=== PATIENT | female | born 1950 | race Caucasian/White ===

== ENCOUNTER → 2023-05-22 15:07 | Outpatient (CLI) | payer OTHER, SELFPAY ==
[2023-05-22 17:13] LABS: Add Manual Diff / Slide Review NO; Basophils Absolute Auto 0 /uL (0-100); Basophils Percent Auto 0.6 % (0-2); Eosinophils Absolute Auto 100 /uL (0-450); Hemoglobin 13.6 g/dL (12.0-16.0); Lymphocytes Absolute Auto 2300 /uL (1100-4500); Mean Corpuscular HGB Conc 33.9 % (30-36); Mean Corpuscular Hemoglobin 30.3 PG (26-34); Mean Corpuscular Volume 89.5 fL (80-100); Monocytes Absolute Auto 400 /uL (0-900); Monocytes Percent Auto 6.7 % (3-14); Neutrophils Absolute Auto 3700 /uL (1500-7000); Neutrophils Percent Auto 55.7 % (50-75); Platelet Count 226 X10^3/uL (150-400); Red Blood Cell Count 4.47 X10^6/uL (4.0-5.2); Red Cell Distribution Width 13.4 % (11.6-14.8); White Blood Cell Count 6.6 X10^3/uL (4.5-11.0)
[2023-05-22 17:26] LABS: Hemoglobin A1C% w Est Avg Glu 5.5 % (4.0-6.0)
[2023-05-22 17:27] LABS: BUN Creatinine Ratio 29.5 (6-22); Blood Urea Nitrogen 23 mg/dL (7-17); Calcium 9.6 mg/dL (8.4-10.2); Carbon Dioxide 31 mmol/L (22-32); Chloride 104 mmol/L (98-107); Estimated Glomerular Filt Rate > 60 mL/min (>60); Glucose 94 mg/dL (80-110); HEMOLYSIS < 15 (0-50); Potassium 4.2 mmol/L (3.4-5.1); Sodium 140 mmol/L (137-145)
== END ==
PROVIDERS: PCP Physician Assistant; Referring Provider Orthopaedic Surgery Orthopaedic Surgery of the Spine; Visit Provider Orthopaedic Surgery Orthopaedic Surgery of the Spine
DX: Z01.818 Encounter for other preprocedural examination (principal); R73.9 Hyperglycemia, unspecified; Z01.812 Encounter for preprocedural laboratory examination
CPT/HCPCS: 36415; 80048; 83036; 85025; 93005

== ENCOUNTER 2023-06-22 06:43 | Inpatient (IN) | payer OTHER, SELFPAY ==
[2023-06-14 12:57] VITALS: BMI 32.5
[2023-06-22] VITALS (13 sets, daily range): BP systolic 87–150; BP diastolic 45–83; PULSE 71–92; RESP 10–17; TEMP 35.8–36.2; O2SAT 84–97; BMI 33.6
--- NOTE | 2023-06-22 | DI.RAD.S_ITS ---
PROCEDURE: XR LUMBAR SPINE 2-3V INDICATIONS: L4-5 L5-S1 TLIF TECHNIQUE: 3 views of the lumbar spine were acquired. COMPARISON: [facility] Outside Film, MR, MR LUMBAR SPINE WITHOUT CONTRAST, 02/06/2022, 15:13. [facility] Outside Film, CT, CT LUMBAR SPINE WITHOUT CONTRAST, 05/03/2023, 11:23. FINDINGS: 3 intraoperative fluoroscopy images demonstrate discectomy and posterior fusion at L4-L5 and L5-S1. IMPRESSION: Discectomy and posterior fusion at L4-S1. Dictated by: Tod Bethea M.D. on 06/22/2023 at 13:12 Approved by: Tod Bethea M.D. on 06/22/2023 at 13:13
[2023-06-22] MEDS: ACETAMINOPHEN 325 MG TABLET 975 MG PO (07:39)
[2023-06-22] MEDS: PREGABALIN 75 MG CAPSULE PO (07:39)
[2023-06-22] MEDS: LACTATED RINGERS 1,000 ML 42 ML IV (07:39)
--- NOTE | 2023-06-22 07:39 | PM.PREOP ---
Pre-operative Note Interval Note History & Physical reviewed/Exam performed by Physician: Yes Changes to H&P: No
[2023-06-22] MEDS: CEFAZOLIN 2 GM/100 ML PREMIX 100 ML IV ×3 (08:15→23:03)
--- NOTE | 2023-06-22 08:32 | SUR.OPER ---
Prone on spine table, head in foam head support, padded chest and pelvic supports, gel pad at knees, lower legs supported by pillows; nipples, genitalia and toes free of pressure, arms secured on foam padded arm boards at <90 degrees abduction. Tape over blanket at thigh secured to table.
[2023-06-22] MEDS: BUPIVACAINE LIPOSOME 266 MG/20 ML VIAL INJ (08:40)
[2023-06-22] MEDS: BUPIVACAINE 0.25% (PF) 60 ML, EPINEPHrine 0.15 MG INJ (08:41)
--- NOTE | 2023-06-22 11:11 | P.OP_ITS ---
Operative Date/Time/Diagnoses Date of procedure: 06/22/23 Time of procedure: 07:40 Pre-op diagnosis: 1. L4-5, L5-S1 spinal stenosis with radiculopathy 2. L4-5, L5-S1 spondylolisthesis Post-op diagnosis: same Procedure & Clinicians Procedure: 1. L4-5, L5-S1 Postero-lateral and posterior interbody fusion 2. L4-5, L5-S1 interbody cage placement. 3. L4-5, L5-S1 decompressive laminectomy with bilateral facetecomies 4. L4-5, L5-S1 Posterior segmental instrumentation 5. Byron of bone marrow from iliac crest 6. Utilization of microsurgical technique and operating microscope 7. Utilization of robotic assisted navigation Same procedure as scheduled: Yes Indications: Patient has been having chronic back pain and worsening lumbar radiculopathy. Patient failed multiple conservative management with worsening pain weakness and numbness in her lower extremity. Patient has been having difficulty performing activity of daily living. After discussing risks benefits of treatment options, patient elected proceed with surgery. Surgeon: Stan Dodge Burglar Alarm Assembler: Lynda Bello Click Yes if Unassisted: No Anesthesia Type: General Operative Notes Specimen(s): none sent Prosthetic devices, grafts, tissues, transplants, or devices: Globus CREO MiS screws, Rise cages Applied: catheter Estimated Blood Loss (mL): 100 Blood products transfused: none Procedure in detail: Patient was seen in the preoperative area. Risks and benefits of the surgery was discussed with the patient. Informed consent was obtained from the patient and placed in the chart. Surgical site was marked. Patient was taken to the operative room. General anesthesia was administered. Prophylactic antibiotic was given to the patient less than 30 min before the incision was made. Patient was placed into a prone position on the Trevon table. Patient's back was then p repped and draped in the sterile fashion. Time-out was performed at this time. After patient was prepped and draped, patient's PSIS was palpated and marked bilaterally. Small 1 cm incision was made over the PSIS for placement of the reference probes. Two trocar was placed into the PSIS 1 on each side. The reference probe was attached to the trocar of the reference apparatus. At this time the C-arm imaging was used to confirm AP and lateral of L4-L5, L5- S1 vertebrae and merged the C-arm imaging using the [employer] robotic navigation system with the CT of the lumbar spine. After successful merging was completed and confirmed, skin marker was used to daniel out the skin incision using the [employer] robotic arm. Bilateral incision was made at this time. Pre templated trajectory was used and guided using the [employer] robotic navigation system for bilateral L4, L5, S1 pedicle screw placement. This was done by using the robotic arm to guide the high-speed bur to make a cortical entry point. Next a drill was placed also using the robotic arm and guided using the navigation system drilling partially through bilateral L4, L5 and S1 pedicles. Next L4, L5, S1 pedicle screws it was pre templated and measured was placed onto the power class b truck driver and inserted into the pedicles bilaterally. After all 6 screws were placed C-arm imaging was taken of both AP and lateral to confirm the placement. Excellent placement of the screws were confirmed and a matched precisely with the pre planned screw placement using the navigation system. MARs retractor was inserted using [employer] guidence. Globus MARS retractors was placed inside the incision and docked onto the L4 and L5 lamina. Using microsurgical technique and operating microscope, a L4, L5 laminectomy and L4-5, L5-S1 facetectomy was performed using a Kerrison rongeur. The laminectomy and facetectomy was performed in order to decompress patient's cauda equina as well as the nerve roots exiting at the L4-5, L5-S1 level. Patient was found have severe lateral recess and neural foramen stenosis which was fully decompressed after the laminectomy facetectomy. More than 75% of the facets were removed during the process of decompression rendering L4-5, L5-S1 level grossly unstable and required a fusion procedure at the same time. The disc space at L4-5, L5-S1 was identified, and a total diskectomy was performed at L4-5, L5-S1 level. The endplates were decorticated using a rasp and shaver. The total diskectomy and decortication was performed at L4-5, L5-S1 level in order to to accomplish a L4- 5, L5-S1 fusion. The local bone from the laminectomy and facetectomy was saved for local bone grafting. After the total diskectomy and decortication was completed, Trifecta bone graft material was combined with local bone that was harvested earlier. At this time, a separate skin is incision was made over the iliac crest. A Jamshidi needle was inserted into the iliac crest through a separate skin incision. 5 cc of bone marrow aspiration was obtained through the separate skin incision using a Jamshidi needle from the iliac crest. The bone marrow aspiration was combined with local bone and the DBM bone grafting material. The bone grafting material was placed into the L4-5, L5-S1 interbody space along with a expandable cage. The cage was expanded to its maximum height using the torque limiting screwdriver. The disc preparation as well as the cage insertion were also performed under navigation guidance. After the cage was placed, AP and lateral C-arm imaging was taken to confirm placement of the cage and excellent position was confirmed. Globus MARS retractor was inserted and docked onto the L4-5, L5-S1 posterolateral gutter on the right side. Using the power drill, posterior- lateral decortication was performed at L4-5, L5-S1 level until bleeding cortical bone was identified. The remaining bone grafting material was placed into the L4-5, L5-S1 posterior lateral gutter he order to accomplish posterolateral fusion at the L4-5, L5-S1 level. At this time the tulips were attached to the L4, L5, S1 pedicle screw shanks. After measuring the length of the rods, they were inserted into the tulips of the pedicle screws and locked in place using locking caps and torque limiting screwdriver bilaterally. Total 6 caps and 2 titanium rods was used in order to complete the posterior instrumentation construct. After all the hardware was placed, and confirmed with AP and lateral C-arm imaging, the wound was then irrigated with sterile normal saline and packed with Ray-Kelly gauze for 3 min to accomplish hemostasis. After the gauze was removed the deep fascia was closed with #1 Vicryl suture. The subcutaneous layer was closed with 2-0 Vicryl. The skin was closed with skin amor. Patient tolerated the procedure well. There were no complications. Neuro monitoring system was used to monitor patient's neurologic status throughout entire procedure. There was no disturbance of the neural monitoring signals throughout the case. The Operation could not have been safely performed without compromising the technical result or length of the procedure, without the assistance of a skilled surgical appliances salesperson. The surgical appliances salesperson was medically necessary for proper positioning, retraction and manipulation of instruments, proper exposure, surgical preparation, and manipulation of tissue. Complications: none Post-operative Condition: stable Disposition: PACU Plan for aftercare: Admit to inpatient hospital
[2023-06-22] MEDS: HYDROMORPHONE 2 MG TABLET PO (12:07)
[2023-06-22] MEDS: hydrOXYzine pamoate 25 MG CAPSULE PO ×3 (12:08→23:05)
[2023-06-22] MEDS: HYDROMORPHONE 0.5 MG INJ IV ×2 (12:49→20:17)
[2023-06-22] MEDS: LACTATED RINGERS 1,000 ML 125 ML IV ×2 (12:50→20:08)
[2023-06-22] MEDS: ONDANSETRON 4 MG ODT SL ×2 (12:50→18:25)
[2023-06-22] MEDS: TRAMADOL 50 MG TABLET PO ×2 (14:54→21:42)
--- NOTE | 2023-06-22 15:25 | PT.IPTN ---
Current Diagnoses Spondylolisthesis, lumbar region (06/22/23) Spinal stenosis, lumbar region with neurogenic claudication (06/22/23) Surgery Performed Operation Date: 06/22/23 07:45 Actual Procedures p L4-5, L5-S1 TLIF w. posterior instrumentation -Robot - Stan Dodge MD Physical Therapy Treatment Note M3 PT-IP Subjective Start: 06/22/23 15:59 Freq: NEEDED Status: Active Protocol: Document 06/22/23 15:25 AB (Rec: 06/22/23 16:09 AB [id number]) Subjective Physical Therapy Visit Type Type Administrative Note Notes PT eval received. Checked on pt and pt initially agreed to do PT. PLOF and home set up obtained. BP: 124/67 and O2 sat 96% with 2L/min O2, 90-92% at RA. Post-op handout provided and discussed with pt . educated pt regarding back precautions and log roll bed mobility. spouse arrived. PT set things up for pt prior mele mobilization but when it was time to mobilize, pt stated that she is getting nauseated and wants to just do PT tomorrow. positioned everything back. call light and table placed within reach. spouse stated that he will stay for the night and agreeed to do caregiver training tomorrow ~ 10am.
[2023-06-22] MEDS: ACETAMINOPHEN 325 MG TABLET 650 MG PO ×2 (17:41→23:04)
[2023-06-23] MEDS: TRAMADOL 50 MG TABLET PO ×3 (04:09→11:01)
[2023-06-23] MEDS: hydrOXYzine pamoate 25 MG CAPSULE PO ×3 (04:09→16:02)
[2023-06-23] MEDS: LACTATED RINGERS 1,000 ML 125 ML IV (04:40)
[2023-06-23 04:56] VITALS: BP 118/55; PULSE 104; RESP 18; TEMP 36.4; O2SAT 93
[2023-06-23 05:30] LABS: Hematocrit 33.3 % (36-46)
[2023-06-23] MEDS: ACETAMINOPHEN 325 MG TABLET 650 MG PO ×2 (09:12→20:27)
[2023-06-23] MEDS: CITALOPRAM 10 MG TABLET 5 MG PO (09:12)
[2023-06-23] MEDS: LORATADINE 10 MG TABLET PO (09:12)
[2023-06-23 09:20] VITALS: BP 113/46; PULSE 90; RESP 18; TEMP 36.7; O2SAT 93
--- NOTE | 2023-06-23 10:15 | PT.IIE ---
Current Diagnoses Spondylolisthesis, lumbar region (06/22/23) Spinal stenosis, lumbar region with neurogenic claudication (06/22/23) Arthrodesis status (06/22/23) Surgery Performed Operation Date: 06/22/23 07:45 Actual Procedures p L4-5, L5-S1 TLIF w. posterior instrumentation -Robot - Stan Dodge MD Surgical History (Last Updated 06/14/23 @ 13:24 by Mili Kaur, RN) History of section (~1980) History of cholecystectomy History of hysterectomy History of surgery History of tonsillectomy and adenoidectomy (~1954) Hx of bilateral cataract extraction (~2017) Status post LASIK surgery (~2000) Medical History (Last Updated 06/14/23 @ 13:24 by Mili Kaur, RN) History of anxiety History of arm fracture (~2010) History of back pain History of bruising easily History of chronic urinary tract infection History of depression History of eczema History of fracture (~2007) History of fracture (~2007) History of migraine headaches History of pneumococcal pneumonia History of sepsis (~2010) Lumbosacral spinal stenosis Physical Therapy Inpatient Evaluation/Re-Eval M1 PT/OT-IP Prior Functional Status Start: 06/22/23 15:59 Freq: NEEDED Status: Active Protocol: Document 06/23/23 10:15 AB (Rec: 06/23/23 13:03 [email or web address]) Medical Review Prior Functional Status Medical History Reviewed Yes Communication able to make needs known Mobility and Gait pt stated that she is modified independent with all mobilities and ambulation without AD Social History Household Members spouse Living Arrangements Apartment/Condo Number of Floors (Floors) One Floor Number of Stairs To Enter/Railing? pt lives in the 3rd floor of an apartment with an elevator to get to her level has to walk ~ 100 ft to get in to her apartment Home Environment Standard Height Toilet,Tub/ Shower,Elevator Home Equipment Four Wheel Walker,Shower Seat with Backrest,Hand Held Shower ,Grab Bars Near Toilet,Grab Bars In Shower Additional Social History Comment pt stated that she can borrow a FWW from her neighbor has to walk at least 100 ft to get into her apartment M2 PT-IP Current Condition Start: 06/22/23 15:59 Freq: NEEDED Status: Active Protocol: Document 06/23/23 10:15 AB (Rec: 06/23/23 13:03 AB [email or web address]) Physical Therapy Current Condition Current Condition Evaluation Date 06/23/23 Treatment Diagnosis s/p L4-5,L5S1 TLIF; difficulty in walking Onset Date 06/22/23 M3 PT-IP Subjective Start: 06/22/23 15:59 Freq: NEEDED Status: Active Protocol: Document 06/23/23 10:15 AB (Rec: 06/23/23 13:03 AB [email or web address]) Subjective Physical Therapy Visit Type Type Initial Evaluation Visit Start Time 10:15 Visit Stop Time 10:50 Total Visit Minutes 35 Number of DRYWALL CONTRACTOR Visits 0 Physical Therapy Visit Comments Patient Comments agreeable to do PT; c/o 07/03 pain Therapy Pain Assessment Pain When Pain Assessed At Rest Pain Present Pain Present Pain Reported Location low back Intensity 10 Scale Used Numeric (0 - 10) Pain Management Techniques Distraction,Modification of Treatment,Re-positioning, Timing of Activity with Medications M4 PT-IP Mobility and Gait Start: 06/22/23 15:59 Freq: NEEDED Status: Active Protocol: Document 06/23/23 10:15 AB (Rec: 06/23/23 13:03 AB [email or web address]) PT-Bed Mobility Assessment Rolling Type of Rolling Log Rolling Level of Assist Minimal Assistance Supine to Sit Supine to Sit Moderate Assistance Sit to Supine Sit to Supine Standby Assistance PT-Transfer Assessment Sit to and From Stand Sit to and from Stand Moderate Assistance,Maximum Assistance,1 Person Assistance ,Use of Upper Extremities Equipment Transfer Assistive Device Gait Belt,Front Wheeled Walker Orthotic/Prosthetic Devices or Brace: No Transfers Transfer Destination Bed Transfer Technique ambulated Transfer Ability Level of Assist Moderate Assistance,1 Person Assistance,Use of Upper Extremities Comments Mobility Comments pt supine in bed. able to recall back precautions. c/o 07/03 LBP. completed log roll supine to sit mod A and max cues. able to sit on EOB CGA. completed sit to stand mod to max A and max cues. ambulated ~ 12 ft to the other side of the bed using FWW mod A and max cues for steadiness . Caregiver training initiated. educated spouse on how to use safety belt and how to assist pt. spouse was able to put safety belt on pt. educated pt on sit<>stand techniques. completed sit to stand with PT assisting mod A and cues. pt repeated sit <>stand x 3 with spouse assisting and completed mod A and cues. spouse assisted pt with ambulation in room using FWW 12 ft mod A. pt requested to go back to bed. completed sit to supine SBA . positioned pt in bed. call light and table placed within reach. Gait Assessment Gait Gait Assistance Required: Moderate Assistance Distance (Feet) 12 Able to Maintain Weight Bearing Status Yes During Gait Assistive Devices Assistive Device Gait Belt,Front Wheeled Walker Orthotic/Prosthetic Devices or Brace: No Gait Deviations General Gait Pattern Antalgic,Decreased Stride Length,Decreased Feet Clearance,Step-to Gait Factors Limiting Gait Function Factors Limiting Gait Function Decreased Activity Tolerance, Decreased Strength,Limited Range of Motion,Pain,Poor Balance,Poor Safety Awareness PT-Balance Assessment Sitting Balance and Reactions Static Sitting Balance Ability Good Dynamic Sitting Balance Ability Good Standing Balance and Reactions Static Standing Balance Ability Fair Dynamic Standing Balance Ability Poor Device Used FWW M5 PT-IP Objective Assessments Start: 06/22/23 15:59 Freq: NEEDED Status: Active Protocol: Document 06/23/23 10:15 AB (Rec: 06/23/23 13:03 [email or web address]) Orientation Orientation/Cognition Level of Alertness Alert Orientation Name,Place,Situation Language Function Ability No Deficits Noted Safety Awareness Decreased Safety Awareness Memory Description No Deficits Noted Gross Range of Motion Lower Extremity ROM Assessment Within Functional Limits Strength Lower Extremity Strength Assessment Bilaterally Impaired Hip 4-/5 Knee 3+/5 Sensation Assessment Sensation Gross Sensation Right LE Impaired Sensation Description Numbness Comments Sensation Comments c/o R lower leg numbness Muscle Tone Muscle Tone WNL Yes M6 PT-IP Treatment Start: 06/22/23 15:59 Freq: NEEDED Status: Active Protocol: Document 06/23/23 10:15 AB (Rec: 06/23/23 13:03 AB [email or web address]) Physical Therapy Treatment Education Education Provided Precautions,Weight Bearing Status,Post-Op Packet,Safety M7 PT-IP Assessment and Plan Start: 06/22/23 15:59 Freq: NEEDED Status: Active Protocol: Document 06/23/23 10:15 AB (Rec: 06/23/23 13:03 AB [email or web address]) PT Summary Assessment and Plan Potential Rehabilitation Potential Fair Status of Condition at Evaluation Evolving Summary Impairments Pain,ROM,Strength,Balance, Coordination,Sensation,Tone, Cognition,Bed Mobility, Transfers,Gait,Activity Tolerance Assessment Summary Pt is a 73y/o female who underwent L4-5, L5S1 TLIF. pt currently requiring mod A with bed mobility and mod to max A for transfers and ambulation using FWW. pt lives with spouse and plans to go home with spouse to assist. caregiver training initiated but further training is needed . pt has no steps to enter her apartment since there is an elevator she can use but pt needs to be able to ambulate >100 ft to get into her apartment. Pt with c/o increase LBP of >10/10 limiting mobility and actvitity tolerance affecting functional independence. will continue PT to improve overall strength and mobility and conduct caregiver training to safely d/c home. Goals Bed Mobility Goal Independent Transfer Goal Independent,Front Wheeled Walker Gait Goal Independent,Front Wheel Walker Gait Distance 150 Days to Meet Goals 5 Frequency of Treatment Frequency Of Treatment Twice a Day Treatment Plan Physical Therapy Treatment Plan Bed Mobility Training,Transfer Training,Gait Training, Therapeutic Exercise,Balance Retraining,Post Op Education, Discharge Planning,Hot or Cold Pack,Neuromuscular Re-ed, Coordination Retraining,Manual Therapy Precautions Lumbar Precautions Log Roll,No Twisting,Limit Bending,Lifting Restriction of 10 lbs,Gait Belt above Incisional Area Discharge Recommendations PT Discharge Recommendations Home with 24/7 Assist Available,Home Health Transportation Needs at Discharge Private Vehicle,Wheelchair/ Cabulance
--- NOTE | 2023-06-23 10:54 | PM.PNPO.1 ---
Subjective Subjective Date Patient Seen: 06/23/23 Time Patient Seen: 10:54 Interval history: Pt resting comfortably in bed, just finished working w/ PT. C/o poor pain control overnight; tramadol was increased from 50mg to 100mg q 3hrs. Also receiving Vistaril for muscle spasm. C/o low back pain; denies LE symptoms other than 'tingly' right foot. Prior to surgery, c/o LE pain, R>L; this has improved. Exam Vital Signs (past 8 hours): - 06/23/23 04:56 06/23/23 09:20 Temperature 97.6 F 98.1 F Pulse Rate 104 H 90 Respiratory Rate 18 18 Blood Pressure 118/55 L 113/46 L Pulse Oximetry 93 93 Oxygen Flow Rate 1 0 Oxygen Delivery Method Nasal Cannula Oxygen Flow Rate 0 Narrative Exam Narrative: 5/5 strength in hip flexors, quadriceps, hamstrings, DF, PF, EHL bilaterally. Sensation to light touch intact throughout BLE. Calves soft, compressible, nontender. Dressing placed intraoperatively is CDI. Objective Labs 06/23/23 04:20 Labs: Laboratory Results - last 24 hr 06/23/23 04:20 Hgb 11.0 L Hct 33.3 L PFSH Medical History (Updated 06/14/23 @ 13:24 by Mili Kaur RN) History of anxiety History of arm fracture (~2010) History of back pain History of bruising easily History of chronic urinary tract infection History of depression History of eczema History of fracture (~2007) History of fracture (~2007) History of migraine headaches History of pneumococcal pneumonia History of sepsis (~2010) Lumbosacral spinal stenosis Surgical History (Updated 06/23/23 @ 10:56 by Lynda Bello PA-C) History of section (~1980) History of cholecystectomy History of hysterectomy History of surgery History of tonsillectomy and adenoidectomy (~1954) Hx of bilateral cataract extraction (~2017) Status post LASIK surgery (~2000) Social History household members: spouse Smoking Status: Never smoker alcohol intake: current Assessment & Plan Post-op Assessment and plan (1) S/P lumbar fusion: Assessment and Plan narrative: Continue work w/ PT, hopeful better pain control w/ increased tramadol. Field out today. Likely d/c tomorrow pending pain control and progress w/ PT. Postoperative Procedures: Procedures Operation Date: 06/22/23 07:45 Actual Procedure Side Surgeon p L4-5, L5-S1 TLIF w. posterior instrumentation -Robot Stan Dodge MD Postoperative day: 1 Quality VTE Deep Vein Thrombosis/Pulmonary Embolism Present on Admission: No
--- NOTE | 2023-06-23 11:49 | CM.DANOTE ---
Initial DCP Assessment Note Reviewed EMR and team rounds for pt's medical status and anticipated home d/c needs. Met with pt/spouse at bedside to introduce self and role. Payor: Sarah Jaquez Attending: Echo PCP-Bonny Guevara Pt is 73 year-old F admitted for TLIF surgery w/Dr. Dodge. Surgery was completed yesterday, pt was found to be alert and upright in the recliner, accompanied by her . She presents as alert, oriented, able to participate in assessment. CLERICAL OFFICE explained that dcp will be monitoring her progress with therapies, which are set to start later this am. Pt to f/u OP w/Dr. Dodge re: continued OP recommendations for therapies. She shares that she's understandably in a lot of pain, however was able to transfer to the recliner w/assistance. Pain level was already communicated with RN/MD, plan was to increase her pain medication to comfort. No further needs identified at this time. DCP will continue to monitor the development of further d/c resource/support needs. 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 No History Provided By Patient,Medical Record Has Patient been admitted in last 30 No days? Prior Living Arrangements Apartment/Condo Comment Pt resides independently at home w/spouse. Household Members spouse Type of transporation used prior to Drives own vehicle admit Independent with ADL's Yes Is patient alert and oriented? Yes Comment N/A Caregiver for Another No Comment Pending OT/PT eval and recommendations. Barriers to Discharge No Discharge Plan Home Referrals Initiated None needed Additional Comment No identified resource needs at the time of this assessment . Whiteboard Updated in Patient Room with Yes name and ext. # of Atomic Fuel Assembler Review Status In Process Please Provide Date Initial DC 06/23/23 Assessment Was Performed Pre-Anesthesia Assessment Start: 06/14/23 12:49 Freq: Status: Complete Protocol: Document 06/14/23 12:57 TC (Rec: 06/14/23 13:46 TC [id number]) Pre-Anesthesia Assessment Patient Information Reviewed Via Phone Assessment Assessment Completed With Patient Diagnostic Results BMP/CMP,CBC,EKG,Other Comment 05/22/23 Primary Care Provider kirstin Medical Clearance Received Not Applicable Seen Specialist in Last 12 Months Yes Specialist Seen Orthopedist Primary Language Croatian Preferred Language Croatian Visual Designer Required No Height 162.56 cm Weight 86.183 kg Body Mass Index (BMI) 32.5 Hearing Ability Normal Visual Impairment Partially Limited Visual Assist Glasses,Magnifying Glass Dentition Type Teeth, Missing Barriers to Learning None Hx Anesthesia Reactions Yes: HX of PONV Hx Family Anesthesia Reaction No Hx Malignant Hyperthermia No Hx Blood Transfusions No Hx Blood Transfusion Reaction No 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 No Does patient have JOHNSON/SOB No Hx Sleep Apnea No Currently Taking a Beta Sangita No Can You Climb a Flight of Stairs Without Yes: not with back right now SOB Hx Chest Pain No Hx SOB No Hx Syncope or Dizziness No Anti-Coagulant Therapy No Has a Butcher Or Smallgoods Maker No Cardiac Testing No Hx Pacemaker/ICD No Pacemaker Rep Required? No Cardiac Clearance Received Not Applicable Diet Type At Home Gluten Free,Lactose Intolerant Dysphagia No Chronic UTI Yes: HX- not recent Bladder Pattern Incontinent Urinary Catheter Present No Hx Urinary Self Catheterization No Comment incontinent since back issues Diabetes No Patient No Lactating No Hx Drug Resistant Organism No Presence of External or Internal Medical Yes: Jarek IOL's, breast marker Devices L Have you had any close contact with No someone diagnosed with COVID-19? Are you experiencing any of these No symptoms symptoms? Evaluation/Screening for possible COVID- Yes 19 infection completed? Received a COVID vaccine? Yes Marital Status Lives With spouse Current Living Arrangements Apartment/Condo Number of Floors (Floors) 3 or More Floors Number of Stairs To Enter/Railing? has elevator Support System Family Does the Patient Have Assistance After Yes Surgery Patient Discharge Plan Description Return Home Feels Safe in Current Environment Yes Been Physically Hurt or Threatened By a No Person in Current Environment If Yes, Provider Notified No Do you have thoughts of harming yourself None or others? Are you currently considering suicide? No Do you have a plan to hurt yourself or No Plan others? If Yes, Provider Notified No Do You Have Any Spiritual Beliefs That No May Affect Your HC Choices? Do You Have Any Cultural Practices That No May Affect Your HC Choices? Who Can We Speak to About Patient's Care spouse Health Care Proxy/Next of Kin [facility] Contact Name [facility] Contact Advance Directives? No Power of College Or University Department Head No PAC Instructions Assistance for 24 hours post- op,Do not shave/clip surgical site,Medications to take/avoid ,Nasal antibiotic,No ETOH/ petroleum product on skin DOS, NPO,Pre-surgical wash,Sensory aids,Sturdy shoes/comfortable clothes,Do not bring valuables and remove jewelry
[2023-06-23] MEDS: diazePAM 2 MG TABLET PO (13:59)
--- NOTE | 2023-06-23 14:00 | PT.IPTN ---
Current Diagnoses Spondylolisthesis, lumbar region (06/22/23) Spinal stenosis, lumbar region with neurogenic claudication (06/22/23) Arthrodesis status (06/22/23) Surgery Performed Operation Date: 06/22/23 07:45 Actual Procedures p L4-5, L5-S1 TLIF w. posterior instrumentation -Robot - Stan Dodge MD Physical Therapy Treatment Note M2 PT-IP Current Condition Start: 06/22/23 15:59 Freq: NEEDED Status: Active Protocol: Document 06/23/23 10:15 AB (Rec: 06/23/23 13:03 AB [id number]) Physical Therapy Current Condition Current Condition Evaluation Date 06/23/23 Treatment Diagnosis s/p L4-5,L5S1 TLIF; difficulty in walking Onset Date 06/22/23 M3 PT-IP Subjective Start: 06/22/23 15:59 Freq: NEEDED Status: Active Protocol: Document 06/23/23 14:27 TS (Rec: 06/23/23 14:42 TS [id number]) Subjective Physical Therapy Visit Type Type Treatment Note Visit Start Time 14:00 Visit Stop Time 14:26 Total Visit Minutes 26 Notes Spouse present for caregiver training. Number of SENIOR ENERGY CONSULTANT Visits 1 Therapy Pain Assessment Pain When Pain Assessed At Rest Pain Present Pain Present Pain Reported M4 PT-IP Mobility and Gait Start: 06/22/23 15:59 Freq: NEEDED Status: Active Protocol: Document 06/23/23 14:27 TS (Rec: 06/23/23 14:42 TS [id number]) PT-Bed Mobility Assessment Rolling Level of Assist Standby Assistance Supine to Sit Supine to Sit Standby Assistance Sit to Supine Sit to Supine Minimal Assistance,1 Person Assistance Scooting Scooting to Edge of Bed Standby Assistance PT-Transfer Assessment Sit to and From Stand Sit to and from Stand Minimal Assistance,1 Person Assistance,Use of Upper Extremities Equipment Transfer Assistive Device Gait Belt,Front Wheeled Walker Orthotic/Prosthetic Devices or Brace: No Comments Mobility Comments Pt found resting in bed, spouse in room, pt agreeable to PT. Pt recalled 3/3 spinal precautions prior to mobility. Logroll SBA, pt grrabs EOB to pull self over. Supine to sit SBA with BUE support, provided cues for LEs over EOB . Pt scooted to EOB, spouse donned gait belt. Sit to stand from bed Bouchra from spouse and use of FWW. She ambulated ~ 150'CGA from spouse with step to gait, pt c/o spasms in LEs, has no buckling or LOB. Sit to supine Bouchra for LEs into bed, pt demonstrated good carryover of logroll onto back . Pt was left back in bed, spouse in room, RN notified. Gait Assessment Gait Gait Assistance Required: Contact Guard Assist,1 Person Assist Distance (Feet) 150 Able to Maintain Weight Bearing Status Yes During Gait Assistive Devices Assistive Device Gait Belt,Front Wheeled Walker Orthotic/Prosthetic Devices or Brace: No Gait Deviations General Gait Pattern Antalgic,Decreased Stride Length,Decreased Feet Clearance,Step-to Gait Factors Limiting Gait Function Factors Limiting Gait Function Decreased Activity Tolerance, Decreased Strength,Limited Range of Motion,Pain,Poor Balance,Poor Safety Awareness Comments Gait Comments See mobility comments. PT-Balance Assessment Sitting Balance and Reactions Static Sitting Balance Ability Good Dynamic Sitting Balance Ability Good Standing Balance and Reactions Static Standing Balance Ability Good Dynamic Standing Balance Ability Fair Device Used FWW M5 PT-IP Objective Assessments Start: 06/22/23 15:59 Freq: NEEDED Status: Active Protocol: Document 06/23/23 10:15 AB (Rec: 06/23/23 13:03 AB [id number]) Orientation Orientation/Cognition Level of Alertness Alert Orientation Name,Place,Situation Language Function Ability No Deficits Noted Safety Awareness Decreased Safety Awareness Memory Description No Deficits Noted Gross Range of Motion Lower Extremity ROM Assessment Within Functional Limits Strength Lower Extremity Strength Assessment Bilaterally Impaired Hip 4-/5 Knee 3+/5 Sensation Assessment Sensation Gross Sensation Right LE Impaired Sensation Description Numbness Comments Sensation Comments c/o R lower leg numbness Muscle Tone Muscle Tone WNL Yes M6 PT-IP Treatment Start: 06/22/23 15:59 Freq: NEEDED Status: Active Protocol: Document 06/23/23 14:27 TS (Rec: 06/23/23 14:42 TS [id number]) Physical Therapy Treatment Education Education Provided Precautions,Weight Bearing Status,Post-Op Packet,Safety M7 PT-IP Assessment and Plan Start: 06/22/23 15:59 Freq: NEEDED Status: Active Protocol: Document 06/23/23 14:27 TS (Rec: 06/23/23 14:42 TS [id number]) PT Summary Assessment and Plan Potential Rehabilitation Potential Good Summary Impairments Pain,ROM,Strength,Balance, Coordination,Sensation,Tone, Cognition,Bed Mobility, Transfers,Gait,Activity Tolerance Progress Towards Goals Progressing Toward Goals Assessment Summary Ana is making good progress with her mobility this session. She is SBA for logroll and supine to sit to EOB. She demonstrates good carryover of logroll and bed mobility sequencing. She required Bouchra for sit to stands with FWW. She progressed her gait to ~150' CGA with FWW, she has no buckling or LOB. Spouse demonstrated good carryover for assisting pt from previous session with PT. PT is recommending return home with 24/7 assist from spouse. Goals Bed Mobility Goal Independent Transfer Goal Independent,Front Wheeled Walker Gait Goal Independent,Front Wheel Walker Gait Distance 150 Days to Meet Goals 5 Frequency of Treatment Frequency Of Treatment Twice a Day Treatment Plan Physical Therapy Treatment Plan Bed Mobility Training,Transfer Training,Gait Training, Therapeutic Exercise,Balance Retraining,Post Op Education, Discharge Planning,Hot or Cold Pack,Neuromuscular Re-ed, Coordination Retraining,Manual Therapy Precautions Lumbar Precautions Log Roll,No Twisting,Limit Bending,Lifting Restriction of 10 lbs,Gait Belt above Incisional Area Discharge Recommendations PT Discharge Recommendations Home with 24/7 Assist Available,Home Health Transportation Needs at Discharge Private Vehicle
--- NOTE | 2023-06-23 16:49 | PC.NURSE ---
Called provider Echo in am to discuss pt's pain control. Pt had voiced not wanting to take dilaudid and oxy due to nausea, but did not feel like Tramadol was controlling her pain. Pt also complaining of intermittent leg cramps and tingling. RN also asked provider about discharge plan for patient and plan for Field. Provider said once pt ambulated and more mobile and pain more controlled, Field could come out. Provider also gave telephone read-back orders for one time Tramodol 50mg, Tramodol PRN 100mg Q3 and diazepam 2mg PRN 4h. pt's Field removed around 1230, pt told RN she voided and unmeasured but 'medium' amount around 1630. RN inspected dressing on back - clean/dry/intact.
[2023-06-23] MEDS: TRAMADOL 50 MG TABLET 100 MG PO ×2 (18:23→22:36)
[2023-06-23] MEDS: GABAPENTIN 300 MG CAPSULE PO (20:27)
[2023-06-23] MEDS: diazePAM 5 MG TABLET PO (20:28)
[2023-06-23] MEDS: ONDANSETRON 4 MG/2 ML INJ IV (20:33)
[2023-06-23 20:46] VITALS: BP 113/71; PULSE 90; RESP 18; TEMP 36.6; O2SAT 93
[2023-06-23] MEDS: ONDANSETRON 4 MG ODT SL (22:35)
[2023-06-24] MEDS: ONDANSETRON 4 MG ODT SL ×3 (04:26→13:10)
[2023-06-24] MEDS: diazePAM 5 MG TABLET PO ×3 (04:26→13:10)
[2023-06-24] MEDS: ACETAMINOPHEN 325 MG TABLET 650 MG PO (04:26)
[2023-06-24] MEDS: TRAMADOL 50 MG TABLET 100 MG PO ×3 (04:27→13:10)
[2023-06-24 08:04] VITALS: BP 111/55; PULSE 95; RESP 18; TEMP 36.3; O2SAT 95
[2023-06-24] MEDS: GABAPENTIN 300 MG CAPSULE PO (09:04)
[2023-06-24] MEDS: LORATADINE 10 MG TABLET PO (09:04)
--- NOTE | 2023-06-24 09:20 | P.DS_ITS ---
History of Present Illness History of Present Illness Date Patient Seen: 06/24/23 Time Patient Seen: 09:20 Chief complaint: INPT Narrative: Operative Date/Time/Diagnoses Date of procedure: 06/22/23 Time of procedure: 07:40 Pre-op diagnosis: 1. L4-5, L5-S1 spinal stenosis with radiculopathy 2. L4-5, L5-S1 spondylolisthesis Post-op diagnosis: same Procedure & Clinicians Procedure: 1. L4-5, L5-S1 Postero-lateral and posterior interbody fusion 2. L4-5, L5-S1 interbody cage placement. 3. L4-5, L5-S1 decompressive laminectomy with bilateral facetecomies 4. L4-5, L5-S1 Posterior segmental instrumentation 5. [place] of bone marrow from iliac crest 6. Utilization of microsurgical technique and operating microscope 7. Utilization of robotic assisted navigation Same procedure as scheduled: Yes Indications: Patient has been having chronic back pain and worsening lumbar radiculopathy. Patient failed multiple conservative management with worsening pain weakness and numbness in her lower extremity.? Patient has been having difficulty performing activity of daily living.? After discussing risks benefits of treatment options, patient elected proceed with surgery. Surgeon: Stan Dodge Communication Skills Instructor: Lynda Bello Click Yes if Unassisted: No Anesthesia Type: General Operative Notes Specimen(s): none sent Prosthetic devices, grafts, tissues, transplants, or devices: Globus CREO MiS screws, Rise cages Applied: catheter Estimated Blood Loss (mL): 100 Blood products transfused: none Discharge Providers Provider Date of admission: 06/22/23 06:43 Discharge Date: 06/24/23 Primary care physician: Bonny Guevara PA-C Consults: 06/22/23 12:36 Consult to Occupational Therapy Evaluate & Treat Comment: Physician Instructions: Evaluate and treat Consult to Physical Therapy Evaluate & Treat Comment: Physician Instructions: Evaluate and Treat Discharge provider: Lynda Bello PA-C Summary Hospital Course Discharge Diagnosis: L4-5, L5-S1 spinal stenosis with radiculopathy, L4-5, L5-S1 spondylolisthesis; s/p lumbar fusion Hospital Course: [facility] course was remarkable for poor pain control. On the morning of POD# 2, she was feeling much better and had good pain control w/ a combination of valium, tramadol, gabapentin, and vistaril. She was eating and voiding without difficulty. She was evaluated by PT throughout her stay and they felt she was appropriate for discharge home w/ assistance of her spouse. Exam Vital Signs (past 8 hours): - 06/24/23 08:04 Temperature 97.3 F L Pulse Rate 95 H Respiratory Rate 18 Blood Pressure 111/55 L Pulse Oximetry 95 Oxygen Flow Rate 1 Oxygen Delivery Method Nasal Cannula Oxygen Flow Rate 1 Narrative Exam Narrative: 5/5 strength in hip flexors, quadriceps, hamstrings, DF, PF, EHL bilaterally. Sensation to light touch intact throughout BLE. Calves soft, compressible, nontender and without palpable cords or masses. Dressing placed intraoperatively is CDI. Objective Labs 06/23/23 04:20 PFS Medical History (Updated 06/14/23 @ 13:24 by Mili Kaur RN) History of anxiety History of arm fracture (~2010) History of back pain History of bruising easily History of chronic urinary tract infection History of depression History of eczema History of fracture (~2007) History of fracture (~2007) History of migraine headaches History of pneumococcal pneumonia History of sepsis (~2010) Lumbosacral spinal stenosis Surgical History (Updated 06/23/23 @ 10:56 by Lynda Bello PA-C) History of section (~1980) History of cholecystectomy History of hysterectomy History of surgery History of tonsillectomy and adenoidectomy (~1954) Hx of bilateral cataract extraction (~2017) Status post LASIK surgery (~2000) Social History household members: spouse Smoking Status: Never smoker alcohol intake: current Discharge Assessment & Plan Assessment and Plan Assessment: L4-5, L5-S1 spinal stenosis with radiculopathy, L4-5, L5-S1 spondylolisthesis; s/p lumbar fusion Plan of Treatment: Discharge home, multimodal pain control, f/u in office in 2 weeks as scheduled. Discharge Plan Discharge Plan Patient Disposition: Home Discharge orders & Medications Prescriptions: New diazepam 5 mg Tablet 5 mg PO Q4H PRN (Reason: Anxiety) Qty: 30 0RF tramadol 50 mg Tablet 100 mg PO Q4H PRN (Reason: Pain, Moderate (4-6)) Qty: 120 0RF docusate sodium 100 mg Capsule 100 mg PO BID PRN (Reason: constipation) Qty: 60 1RF hydroxyzine pamoate 25 mg Capsule 25 mg PO Q4HR PRN (Reason: muscle spasm) Qty: 60 0RF gabapentin 300 mg Capsule 300 mg PO BID Qty: 60 0RF Continued fexofenadine [Aliza] 60 mg Tablet 60 mg PO DAILY citalopram 10 mg Tablet 5 mg PO Q OTHER DAY Excedrin Extra Strength 250-250-65 mg Tablet 2 tab PO BID Patient Comments: 2 in am 1 in afternoon Discontinued ibuprofen 200 mg Tablet 600 mg PO BID Follow up/Referrals: Stan Dodge MD [Physician] - As previously scheduled (Follow up with Dr Dodge on 07/10/2023 @ 10:30 am at [facility] in [place].) Bonny Guevara PA-C [Primary Care Provider] - Diet/Activity/Treatments Diet: Diet as Tolerated Activity: No deep bending or twisting at the waist. No lifting more than 10 pounds. Cold/Heat Therapy: Heating pad to low back as needed for pain. Skin/Wound/Dressing Care Report to your healthcare provider any signs of infection, such as:: chills, fever, night sweats, unusual drainage and unusual redness Dressing: May shower. Keep dressing as dry as possible. If dressing becomes wet or dirty, remove and replace with clean, dry gauze. No bathing or otherwise soaking incisions. Do not apply any creams, lotions, or ointments to incisions. Visit Report/Discharge Packet Instructions: DI for Prescription Opioid Use, DI for Transforaminal Lumbar Interbody Fusion Stand Alone Forms: Patient Portal/API, Stroke Signs & Symptoms, Surgery Discharge Discharge Data Primary Care Provider: Bonny Guevara Quality VTE Deep Vein Thrombosis/Pulmonary Embolism Present on Admission: No
--- NOTE | 2023-06-24 09:27 | CM.DPNOTE ---
Met with patient and her for final DC plan. PT recommends HH support, but patient and decline. She states she feels well prepared for DC home today with who will be ambulance driver paramedic, and support. She states she has a cane, FWW and shower chair at home and feels good about her progress and doing loops in the [address] with FWW. Provider in for final DC process now.
--- NOTE | 2023-06-24 09:47 | PT-IP ANOTE ---
Attempted to see pt at 9:47 AM, pt refused stating she feels ready to go home and has no further needs. Completed caregiver training yesterday. Discussed at home safety and precautions.
[2023-06-24] MEDS: hydrOXYzine pamoate 25 MG CAPSULE PO (12:22)
--- NOTE | 2023-06-24 13:42 | PC.NURSE ---
Discharge Note Patient A&O, VSS, RA, no complaints of pain/discomfort. Discharge packet reviewed with patient, all questions/concerns addressed. PIV discontinued. Patient able to shower and dress self with assistance. Patient able to pack all belongings. Patient taken down via wheelchair to POV. Reminded to bean picker prescriptions at preferred pharmacy.
== END 2023-06-24 13:30 | disposition home or self-care (01) | DRG 455 ==
PROVIDERS: Admitting Provider Orthopaedic Surgery Orthopaedic Surgery of the Spine; PCP Physician Assistant; Referring Provider Orthopaedic Surgery Orthopaedic Surgery of the Spine; Visit Provider Orthopaedic Surgery Orthopaedic Surgery of the Spine
PROC: 0SG00AJ Fusion of Lumbar Vertebral Joint with Interbody Fusion Device, Posterior Approach, Anterior Column, Open Approach (ICD-10-PCS; principal; 2023-06-22 07:45)
DX: M43.16 Spondylolisthesis, lumbar region (principal); M48.07 Spinal stenosis, lumbosacral region; M48.061 Spinal stenosis, lumbar region without neurogenic claudication; M54.16 Radiculopathy, lumbar region; M54.17 Radiculopathy, lumbosacral region; M43.17 Spondylolisthesis, lumbosacral region; G89.18 Other acute postprocedural pain; F32.A Depression, unspecified
CPT/HCPCS: 36415; 72100; 76000; 85014; 85018; 97116; 97162; 97530; C1713; C9290; J0171; J0330; J0690; J1100; J1170; J2250; J2405; J2704; J3010